=== PATIENT | male | born 1980 | race African-American/Black ===

== ENCOUNTER 2023-11-19 10:56 | Emergency (ER) | payer BC ==
[~2023-11-19] VITALS: Ht 180.3 cm; Wt 106.6 kg
[2023-11-19 11:34] VITALS: BP 146/92; PULSE 97; RESP 16; TEMP 98.2; O2SAT 99
== END 2023-11-19 17:33 ==
LOC: ER 11:37
DX: M25.511 Pain in right shoulder (principal); Z53.21 Procedure and treatment not carried out due to patient leaving prior to being seen by health care provider
CPT/HCPCS: 99281